=== PATIENT | male | born 1990 | race African-American/Black ===

== ENCOUNTER 2018-12-08 01:15 | Emergency (ER) | payer OTHER ==
[2018-12-08 01:42] LABS: Bilirubin Negative (Negative); Blood, Urine Trace (Negative); Clarity Clear (Clear); Glucose, Urine (Dipstick) Negative (Negative); Leukocyte Negative (Negative); Nitrite Negative (Negative); Protein, Urine (Dipstick) Negative (Neg-Trace); Urobilinogen 0.2 mg/dL (0.2-1.0); pH, Urine 5.5 (5.0-9.0)
[2018-12-08 01:58] LABS: Bacteria/HPF None Seen HPF (None Seen); RBC/HPF 0-3 HPF (0-3); Squamous Epithelial None Seen HPF (0-3); WBC/HPF 0-3 HPF (0-3)
[2018-12-08 01:58] LABS: #Eosinphils 0.1 thou/uL (0.0-0.7); #Lymphocytes 0.8 thou/uL (1.20-3.40); #Monocytes 0.5 thou/uL (0.11-0.59); #Neutrophils 5.3 thou/uL (1.40-6.50); %Basophils 0.6 % (0.0-1.0); %Eosinophils 1.5 % (0.0-10.0); %Lymphocytes 12.3 % (21.0-51.0); %Monocytes 7.6 % (0.0-10.0); %Neutrophils 77.9 % (42.0-75.0); Hemoglobin 13.4 g/dL (14.0-18.0); Mean Corpuscular HGB CONC 33.2 g/dL (32.0-36.0); Mean Corpuscular Hemoglobin 29.4 pg (27.0-31.0); Mean Corpuscular Volume 88.7 fL (78.0-98.0); Mean Platelet Volume 7.6 fL (7.4-10.4); Platelet Count 183 thou/uL (130-400); RBC Distribution Width 11.4 % (11.5-14.5); Red Blood Cell (RBC) Count 4.55 mill/uL (4.70-6.10); White Blood Cell (WBC) Count 6.8 thou/uL (4.8-10.8)
[2018-12-08] MEDS ORDERED: Acetaminophen 500 MG TAB ONE (02:15)
[2018-12-08 02:19] LABS: ALT (SGPT) 74 U/L (8-55); AST (SGOT) 84 U/L (5-34); Albumin 4.5 g/dL (3.5-5.0); Alkaline Phosphatase 106 U/L (40-150); Anion Gap 12 mmol/L (10-20); BUN (Urea Nitrogen) 11 mg/dL (8.9-20.6); Bilirubin, Total 0.7 mg/dL (0.2-1.2); Calc. Creatinine Clearance 0 mL/min (70-130); Calcium 9.6 mg/dL (7.8-10.44); Carbon Dioxide 23 mmol/L (22-29); Chloride 104 mmol/L (98-107); Estimated GFR-MDRD 86; Globulin 3.3 g/dL (2.4-3.5); Glucose 101 mg/dL (70-105); Potassium 4.2 mmol/L (3.5-5.1); Protein, Total 7.8 g/dL (6.0-8.3); Sodium 135 mmol/L (136-145)
--- NOTE | 2018-12-08 06:59 | CT ---
CT ABDOMEN AND PELVIS WITH CONTRAST: CLINICAL INDICATIONS: Generalized abdominal pain. FINDINGS: The imaged lung bases are clear. There is no acute abnormality of the solid abdominal organs. The b owel is incompletely evaluated without enteric contrast. There is no free air or significant ascites . The abdominal aorta is normal in caliber. Bilateral patulous, fat-containing inguinal rings are p resent. No acute osseous abnormality. There is moderate distention of the urinary bladder. No free pelvic fluid. IMPRESSION: No acute abnormalities are seen, within limitations. The bowel is incompletely evaluated without the presence of enteric contrast. POS: [facility]
[2018-12-08] MEDS ORDERED: ISOVUE-370 76%-LOCM 1 ML ONE (10:16)
== END 2018-12-08 05:29 | disposition home or self-care (01) ==
LOC: ERS 01:15
DX: K52.9 Noninfective gastroenteritis and colitis, unspecified (principal)
CPT/HCPCS: 36415; 74177; 80053; 81003; 81015; 83690; 85025; 96360; 96361; Q9966